=== PATIENT | male | born 1980 | race Caucasian/White ===

== ENCOUNTER 2019-02-11 17:33 | Emergency (ER) | payer MEDICAID ==
[~2019-02-11] VITALS: Ht 170.2 cm; Wt 65.0 kg
[2019-02-11] MEDS ORDERED: NALOXONE (0.4 MG/ML) INJ IV STA (17:40)
[2019-02-11] MEDS ORDERED: SOD CHLORIDE 0.9% 1,000 ML IV STA (17:40)
[2019-02-11 17:42] VITALS: Ht 170.2 cm; Wt 65.0 kg
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
[2019-02-11] MEDS ORDERED: FLUMAZENIL 0.5 MG INJ IV ONE ×2 (21:30→22:30)
[2019-02-11] MEDS ORDERED: GABA-528 PO (22:22)
[2019-02-11] MEDS ORDERED: IBUP-1982 PO (22:22)
[2019-02-11] MEDS ORDERED: BACL20TA PO (22:23)
[2019-02-11 23:40] VITALS: BP 118/72; PULSE 72; RESP 16
== END 2019-02-11 23:40 | disposition home or self-care (01) ==
LOC: E/R 17:33
DX: T42.4X1A Poisoning by benzodiazepines, accidental (unintentional), initial encounter (principal); R56.9 Unspecified convulsions
CPT/HCPCS: 36415; 70450; 71045; 80053; 80307; 85025; 93005; 96374; 96375; J2310; J7030; Z7502; Z7610

== ENCOUNTER 2019-03-21 21:30 | Emergency (ER) | payer SELFPAY ==
[~2019-03-21] VITALS: Wt 59.9 kg
[~2019-03-21 21:30] MED LIST: BACL20TA PO; GABA-528 PO; IBUP-1982 PO
[2019-03-21 21:44] VITALS: BP 120/74; PULSE 89; RESP 20
== END 2019-03-22 | disposition left against medical advice (07) ==
LOC: FTE 21:30
DX: Z53.21 Procedure and treatment not carried out due to patient leaving prior to being seen by health care provider (principal)

== ENCOUNTER 2019-05-01 00:57 | Inpatient (IN) | payer MEDICAID ==
[~2019-05-01] VITALS: Ht 175.3 cm; Wt 60.0 kg
[2019-05-01 01:03] VITALS: Ht 175.3 cm; Wt 60.0 kg
[2019-05-01] MEDS ORDERED: LORAZEPAM 2 MG INJ ONE (01:13)
[2019-05-01] MEDS ORDERED: HALOPERIDOL 5 MG INJ ONE (01:13)
[2019-05-01] MEDS ORDERED: DIPHENHYDRAMINE 50 MG INJ ONE (01:13)
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
[2019-05-01] MEDS ORDERED: HALOPERIDOL 5 MG INJ IM ONE ×3 (01:30→06:30)
[2019-05-01] MEDS ORDERED: DIPHENHYDRAMINE 50 MG INJ IM ONE ×2 (01:30→06:30)
[2019-05-01] MEDS ORDERED: LORAZEPAM 2 MG INJ IM ONE ×3 (01:30→06:30)
[2019-05-01] MEDS ORDERED: OLANZAPINE 10 MG VIAL IM ONE (03:30)
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
[2019-05-02] MEDS ORDERED: OLANZAPINE 5 MG TAB PO ONE (01:30)
[2019-05-02] MEDS ORDERED: SOD CHLORIDE 0.9% 1,000 ML IV STA (14:37)
[2019-05-02] MEDS ORDERED: ACETAMINOPHEN 325 MG TAB PO PRN ×2 (18:30)
[2019-05-02] MEDS ORDERED: HALOPERIDOL 5 MG INJ IM PRN (18:30)
[2019-05-02] MEDS ORDERED: DIPHENHYDRAMINE 50 MG INJ IM PRN (18:30)
[2019-05-02] MEDS ORDERED: MAGNESIUM HYDROXIDE 30ML CUP PO PRN (18:30)
[2019-05-02] MEDS ORDERED: LORAZEPAM 2 MG INJ IV PRN (18:30)
[2019-05-02] MEDS ORDERED: NACL 0.9% 3 ML SYG IV SCH (18:30)
[2019-05-02] MEDS ORDERED: ONDANSETRON 4 MG INJ IV PRN ×2 (18:30)
[2019-05-02] MEDS ORDERED: DOCUSATE SODIUM 100 MG CAP PO PRN (18:30)
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
[2019-05-02] MEDS: OLANZAPINE 5 MG TAB PO SCH (21:18)
[2019-05-02] MEDS: SOD CHLORIDE 0.9% 1,000 ML IV SCH (21:18)
[2019-05-02] MEDS: GABAPENTIN 400 MG CAP PO SCH (21:18)
[2019-05-02 23:30] VITALS: BP 133/80; PULSE 80; RESP 16
[2019-05-03] MEDS: SOD CHLORIDE 0.9% 1,000 ML IV SCH ×9 (00:18→22:28)
[2019-05-03 01:57] VITALS: BP 140/76; PULSE 85; RESP 16
[2019-05-03] MEDS: PANTOPRAZOLE (EC) 40 MG TAB PO SCH (05:07)
[2019-05-03 07:57] VITALS: BP 133/75; PULSE 77; RESP 18
[2019-05-03] MEDS: GABAPENTIN 400 MG CAP PO SCH ×2 (08:52→20:24)
[2019-05-03] MEDS: OLANZAPINE 5 MG TAB PO SCH ×2 (08:52→20:24)
[2019-05-03] MEDS: ENOXAPARIN 40 MG/0.4 ML SYG SC SCH (08:59)
--- NOTE | 2019-05-03 11:43 | PN ---
Date/Time of Note Date/Time of Note DATE: 05/03/19 TIME: 11:40 Assessment/Plan VTE Prophylaxis Risk score (from Ns)>0 risk: 1 SCD applied (from Nsg): Yes Pharmacological prophylaxis: LMWH Lines/Catheters IV Catheter Type (from Nrsg): Peripheral IV Urinary Cath still in place: No Assessment/Plan Assessment/Plan 1. Acute rhabdomyolysis- improving - will continue IVF. CK trending down - given patient is off restraints will help with resolution of rhabdo - UA noted. no renal injury appreciated - patient is currently calm and hopefully will remain off restraints since contributed to rhabdo 2. Acute psychosis- improved - due to substance abuse - Utox noted - patient only admits to Marijuana use - Tele [facility] consultation appreciated and will add Zyprexa and PRN medications for agitation. Recommended inpatient hold. SW consulted as well - Inhouse psych on board as well and appreciate consultation 3. h/o epilepsy with ENTRY MANAGER shunt - CT head noted with stable shunt - continue on Gabapentin BID - ativan PRN 4. Substance abuse - pt only admits to marijuana use - Utox results noted 5. Homelessness - patient states he lives with his mom at times - SW consultation appreciated 6. Disposition - Continue IVF and encourage PO hydration. If CK continues to trend down nicely, will be cleared medically for discharge Result Diagram: 05/03/19 0456 05/03/19 0456 Results 24hrs Laboratory Tests Test 05/02/19 13:14 05/02/19 15:35 05/03/19 04:56 White Blood Count 9.3 # 8.0 Red Blood Count 4.84 4.38 L Hemoglobin 14.8 13.1 L Hematocrit 44.5 40.9 L Mean Corpuscular Volume 91.9 93.4 Mean Corpuscular Hemoglobin 30.6 29.9 Mean Corpuscular Hemoglobin Concent 33.3 32.0 Red Cell Distribution Width 12.9 12.8 Platelet Count 392 351 Mean Platelet Volume 9.8 9.9 Immature Granulocytes % 0.600 H 0.600 H Neutrophils % 74.7 65.6 Lymphocytes % 16.4 24.1 Monocytes % 6.8 6.9 Eosinophils % 1.2 2.3 Basophils % 0.3 0.5 Nucleated Red Blood Cells % 0.0 0.0 Immature Granulocytes # 0.060 H 0.050 H Neutrophils # 6.9 5.3 Lymphocytes # 1.5 1.9 Monocytes # 0.6 0.6 Eosinophils # 0.1 0.2 Basophils # 0.0 0.0 Nucleated Red Blood Cells # 0.0 0.0 Sodium Level 142 140 Potassium Level 3.9 3.8 Chloride Level 104 107 Carbon Dioxide Level 30 29 Anion Gap 8 4 L Blood Urea Nitrogen 13 11 Creatinine 0.64 0.53 L Est Glomerular Filtrat Rate mL/min > 60 > 60 Glucose Level 120 95 Calcium Level 9.4 9.0 Creatine Kinase 1126 #H 1032 H 872 H Magnesium Level 2.0 Subjective 24 Hr Interval Summary Free Text/Dictation Patient is currently sleeping and no acute distress noted. Remains calm during the day. Exam/Review of Systems Exam Vitals Vital Signs Date Temp Pulse Resp B/P (MAP) Pulse Ox O2 O2 Flow FiO2 Time Delivery Rate 05/03/19 97.7 77 18 133/75 97 Room Air 07:57 (94) Intake and Output 05/02/19 05/02/19 05/03/19 1515:00 23:00 07:00 IntakeIntake Total 1375 ml BalanceBalance 1375 ml Exam General: Patient is resting. no acute distress Neck: Supple Chest: nontender Lungs: Clear bilaterally, nonlabored breathing, no wheezing or rhonchi appreciated Heart: Normal S1-S2, Regular rhythm and rate. No murmur, S3, or S4 Abdomen: Soft , nontender, nondistended , bowel sounds are present Extremities: Normal to inspection, no edema no cyanosis Skin: no rashes or lesions appreciated. Results Results 24hrs Laboratory Tests Test 05/02/19 13:14 05/02/19 15:35 05/03/19 04:56 White Blood Count 9.3 # 8.0 Red Blood Count 4.84 4.38 L Hemoglobin 14.8 13.1 L Hematocrit 44.5 40.9 L Mean Corpuscular Volume 91.9 93.4 Mean Corpuscular Hemoglobin 30.6 29.9 Mean Corpuscular Hemoglobin Concent 33.3 32.0 Red Cell Distribution Width 12.9 12.8 Platelet Count 392 351 Mean Platelet Volume 9.8 9.9 Immature Granulocytes % 0.600 H 0.600 H Neutrophils % 74.7 65.6 Lymphocytes % 16.4 24.1 Monocytes % 6.8 6.9 Eosinophils % 1.2 2.3 Basophils % 0.3 0.5 Nucleated Red Blood Cells % 0.0 0.0 Immature Granulocytes # 0.060 H 0.050 H Neutrophils # 6.9 5.3 Lymphocytes # 1.5 1.9 Monocytes # 0.6 0.6 Eosinophils # 0.1 0.2 Basophils # 0.0 0.0 Nucleated Red Blood Cells # 0.0 0.0 Sodium Level 142 140 Potassium Level 3.9 3.8 Chloride Level 104 107 Carbon Dioxide Level 30 29 Anion Gap 8 4 L Blood Urea Nitrogen 13 11 Creatinine 0.64 0.53 L Est Glomerular Filtrat Rate mL/min > 60 > 60 Glucose Level 120 95 Calcium Level 9.4 9.0 Creatine Kinase 1126 #H 1032 H 872 H Magnesium Level 2.0 Medications Medication Current Medications Sodium Chloride 1,000 ml @ 250 mls/hr Q4H IV Last administered on 05/03/19at 09:29; Admin Dose 250 MLS/HR; Start 05/02/19 at 18:22 IV Flush (NS 3 ml) 3 ml PER PROTOCOL IV ; Start 05/02/19 at 18:30 Ondansetron HCl (Zofran Inj) 4 mg Q6H PRN IV NAUSEA/VOMITING; Start 05/02/19 at 18:30 Acetaminophen (Tylenol Tab) 650 mg Q6H PRN PO .PAIN 1-3 OR TEMP; Start 05/02/19 at 18:30 Docusate Sodium (Colace) 100 mg Q12H PRN PO .CONSTIPATION; Start 05/02/19 at 18:30 Magnesium Hydroxide (Milk Of Mag) 30 ml DAILY PRN PO .CONSTIPATION; Start 05/02/19 at 18:30 Pantoprazole (Protonix Tab) 40 mg DAILY@06 PO Last administered on 05/03/19at 05:07; Admin Dose 40 MG; Start 05/03/19 at 06:00 Enoxaparin Sodium (Lovenox) 40 mg DAILY SC Last administered on 05/03/19at 08:59; Admin Dose 40 MG; Start 05/03/19 at 09:00 Olanzapine (Zyprexa) 5 mg BID PO Last administered on 05/03/19at 08:52; Admin Dose 5 MG; Start 05/02/19 at 21:00 Haloperidol (Haldol) 5 mg Q4H PRN IM agitation; Start 05/02/19 at 18:30 Diphenhydramine HCl (Benadryl) 50 mg Q4H PRN IM agitation; Start 05/02/19 at 18:30 Lorazepam (Ativan) 2 mg Q4H PRN IV agitation Last administered on 05/03/19at 08:59; Admin Dose 2 MG; Start 05/02/19 at 18:30 Gabapentin (Neurontin) 1,600 mg BID PO Last administered on 05/03/19at 08:52; Admin Dose 1,600 MG; Start 05/02/19 at 21:00 SHERIF SALEH MD May 03, 2019 11:43
--- NOTE | 2019-05-03 13:15 | CONS ---
Date/Time of Note Date/Time of Note DATE: 05/03/19 TIME: 13:11 Consult Date/Type/Reason Admit Date May 02, 2019 at 18:12 Type of Consult Psych Reason for Consult Patient is a 38-year-old male who is currently in the [facility] on a 5150 hold for danger to others. On a [id number] evaluation, patient goes off on tangents cannot carry on a coherent consult conversation. He is very paranoid and delusional accusing the one-to-one staff of setting him up, patient was also talking to the interviewer to look at the cameras and there was no camera in the room. He has poor impulse control poor coping skills very intrusive with poor boundaries. Patient is argumentative and unable to contract for safety he would benefit from inpatient hospitalization to reduce risk for self-harm or harm to other people. Objective Patient Appearance: Tense Voice Loudness: Mildly Soft/Quiet Mood and Affect Description: Hallucinating, Suspicious Mood or Affect: Hallucinating Speech Pattern: Garbled Thought Process: Tangential Hallucination Type: Auditory Delusion Description: Present Assessment/Plan Recommendations Continues with Zyprexa 5 mg twice a day, patient to remain on involuntary hold and possibly transfer to inpatient psych BETH PYLE NP May 03, 2019 13:15
[2019-05-03 14:00] VITALS: BP 122/79; PULSE 103; RESP 18
[2019-05-03] MEDS ORDERED: OLAN5TAB5 PO (14:58)
--- NOTE | 2019-05-03 15:03 | PDOCDIS ---
Discharge Instructions DIAGNOSIS Discharge Diagnosis 1. Acute rhabdomyolysis- improving 2. Acute psychosis- improved 3. h/o epilepsy with SURVEYOR shunt- stable 4. Substance abuse 5. Homelessness CONDITION [id number] Patient Condition: [id number] Stable HOME CARE INSTRUCTIONS: [id number] Diet Instructions: [id number] Regular ACTIVITY: [id number] Activity Restrictions: [id number] No Restrictions FOLLOW UP/APPOINTMENTS Follow-up Plan 1. Continue all medications per treating physicians recommendations 2. Keep well hydrated SHERIF SALEH MD May 03, 2019 15:03
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
[2019-05-03 20:03] VITALS: BP 116/80; PULSE 94; RESP 18
[2019-05-04 01:54] VITALS: BP 133/88; PULSE 84; RESP 18
[2019-05-04] MEDS: SOD CHLORIDE 0.9% 1,000 ML IV SCH ×4 (02:37→16:49)
[2019-05-04] MEDS: PANTOPRAZOLE (EC) 40 MG TAB PO SCH (06:36)
[2019-05-04 08:55] VITALS: BP 126/86; PULSE 82; RESP 18
[2019-05-04] MEDS: OLANZAPINE 5 MG TAB PO SCH ×2 (09:37→20:54)
[2019-05-04] MEDS: GABAPENTIN 400 MG CAP PO SCH ×2 (09:38→20:54)
[2019-05-04] MEDS: ENOXAPARIN 40 MG/0.4 ML SYG SC SCH (09:40)
--- NOTE | 2019-05-04 12:40 | PN ---
Date/Time of Note Date/Time of Note DATE: 05/04/19 TIME: 12:36 Assessment/Plan VTE Prophylaxis Risk score (from Nsg)>0 risk: 1 SCD applied (from Nsg): Yes Pharmacological prophylaxis: LMWH Lines/Catheters IV Catheter Type (from Nrsg): Peripheral IV Urinary Cath still in place: No Assessment/Plan Hospital Course Patient was admitted for treatment of acute rhabdomyolysis and started on IVF with improvement in CK levels. Patient remained calm and did not require any fu rther restraints. He denies any complaints of muscle cramping and renal function remained stable. He was evaluated by inpatient psych who arranged for continued treatment in inpatient psych facility. Patient was medically cleared for discharge and was discharged to inpatient psych in stable condition. Assessment/Plan 1. Acute rhabdomyolysis- improving - CK continues to trend down nicely and will d/c IVF. Encouraged PO hydration - UA noted. no renal injury appreciated 2. Acute psychosis- resolved - patient remains calm - due to substance abuse, Utox noted - patient only admits to Marijuana use - Tele [facility] consultation appreciated. Started on Zyprexa and PRN medications for agitation. Recommended inpatient hold. SW consulted as well - Inhouse psych on board as well and appreciate consultation. Will plan for transfer to [facility] but no bed availability at this time 3. h/o epilepsy with RAINBOW TROUT FARM MANAGER shunt - CT head noted with stable shunt - continue on Gabapentin BID - ativan PRN 4. Substance abuse - pt only admits to marijuana use - Utox results noted 5. Homelessness - patient states he lives with his mom at times - SW consultation appreciated 6. Disposition - Medically stable for transfer to inpatient psych. Pending bed availability Result Diagram: 05/03/19 0456 05/03/19 0456 Results 24hrs Laboratory Tests Test 05/03/19 14:53 05/04/19 05:19 Creatine Kinase 746 H 511 H Subjective 24 Hr Interval Summary Free Text/Dictation Patient denies any acute issues and understands he is on a hold due to his behavior. Also voiced that after his 72 hours hold, he will go home with his mother. Per nursing, no beds at this time at [facility]. Exam/Review of Systems Exam Vitals Vital Signs Date Temp Pulse Resp B/P (MAP) Pulse Ox O2 O2 Flow FiO2 Time Delivery Rate 05/04/19 98.7 82 18 126/86 100 08:55 (99) 05/04/19 Room Air 01:54 Intake and Output 05/03/19 05/03/19 05/04/19 1515:00 23:00 07:00 IntakeIntake Total 2880 ml 2200 ml 2050 ml BalanceBalance 2880 ml 2200 ml 2050 ml Exam General: Patient is resting. no acute distress Neck: Supple Chest: nontender Lungs: Clear bilaterally, nonlabored breathing, no wheezing or rhonchi appreciated Heart: Normal S1-S2, Regular rhythm and rate. No murmur, S3, or S4 Abdomen: Soft , nontender, nondistended , bowel sounds are present Extremities: Normal to inspection, no edema no cyanosis Skin: no rashes or lesions appreciated. Results Results 24hrs Laboratory Tests Test 05/03/19 14:53 05/04/19 05:19 Creatine Kinase 746 H 511 H Medications Medication Current Medications Sodium Chloride 1,000 ml @ 250 mls/hr Q4H IV Last administered on 05/04/19at 09:38; Admin Dose 250 MLS/HR; Start 05/02/19 at 18:22 IV Flush (NS 3 ml) 3 ml PER PROTOCOL IV ; Start 05/02/19 at 18:30 Ondansetron HCl (Zofran Inj) 4 mg Q6H PRN IV NAUSEA/VOMITING; Start 05/02/19 at 18:30 Acetaminophen (Tylenol Tab) 650 mg Q6H PRN PO .PAIN 1-3 OR TEMP; Start 05/02/19 at 18:30 Docusate Sodium (Colace) 100 mg Q12H PRN PO .CONSTIPATION; Start 05/02/19 at 18:30 Magnesium Hydroxide (Milk Of Mag) 30 ml DAILY PRN PO .CONSTIPATION; Start 05/02/19 at 18:30 Pantoprazole (Protonix Tab) 40 mg DAILY@06 PO Last administered on 05/04/19at 06:36; Admin Dose 40 MG; Start 05/03/19 at 06:00 Enoxaparin Sodium (Lovenox) 40 mg DAILY SC Last administered on 05/04/19at 09:40; Admin Dose 40 MG; Start 05/03/19 at 09:00 Olanzapine (Zyprexa) 5 mg BID PO Last administered on 05/04/19at 09:37; Admin Dose 5 MG; Start 05/02/19 at 21:00 Haloperidol (Haldol) 5 mg Q4H PRN IM agitation; Start 05/02/19 at 18:30 Diphenhydramine HCl (Benadryl) 50 mg Q4H PRN IM agitation; Start 05/02/19 at 18:30 Lorazepam (Ativan) 2 mg Q4H PRN IV agitation Last administered on 05/03/19at 08:59; Admin Dose 2 MG; Start 05/02/19 at 18:30 Gabapentin (Neurontin) 1,600 mg BID PO Last administered on 05/04/19at 09:38; Admin Dose 1,600 MG; Start 05/02/19 at 21:00 SHERIF SALEH MD May 04, 2019 12:40
[2019-05-04 15:28] VITALS: BP 134/85; PULSE 98; RESP 18
[2019-05-04 20:01] VITALS: BP 127/84; PULSE 60; RESP 18
[2019-05-05 02:06] VITALS: BP 117/76; PULSE 71; RESP 18
[2019-05-05] MEDS: SOD CHLORIDE 0.9% 1,000 ML IV SCH (02:57)
[2019-05-05] MEDS: PANTOPRAZOLE (EC) 40 MG TAB PO SCH (05:17)
[2019-05-05 08:08] VITALS: BP 127/79; PULSE 71; RESP 17
[2019-05-05] MEDS: OLANZAPINE 5 MG TAB PO SCH ×2 (08:21→21:26)
[2019-05-05] MEDS: GABAPENTIN 400 MG CAP PO SCH ×2 (08:21→21:26)
[2019-05-05] MEDS: ENOXAPARIN 40 MG/0.4 ML SYG SC SCH (08:24)
[2019-05-05] MEDS ORDERED: GABA-528 PO (09:33)
--- NOTE | 2019-05-05 09:37 | PN ---
Date/Time of Note Date/Time of Note DATE: 05/05/19 TIME: 09:32 Assessment/Plan VTE Prophylaxis Risk score (from Nsg)>0 risk: 1 SCD applied (from Nsg): Yes Pharmacological prophylaxis: NA/contraindicated Pharm contraindication: low risk/ambulating Lines/Catheters IV Catheter Type (from Nrsg): Peripheral IV Urinary Cath still in place: No Assessment/Plan Assessment/Plan 1. Acute rhabdomyolysis- resolved - CK normalized. will d/c IVF 2. Acute psychosis- resolved - discussed being on a 5150 hold and plans for transfer to psych facility. Patient knows his hold is up today but encouraged to go to outside hospital once bed available - due to substance abuse, Utox noted - patient only admits to Marijuana use - Tele [facility] consultation appreciated. Started on Zyprexa and PRN medications for agitation. Recommended inpatient hold. SW consulted as well - Inhouse psych on board as well and appreciate consultation. Will plan for transfer to [facility] but no bed availability at this time 3. h/o epilepsy with STEWARD/STEWARDESS NIGHT shunt - CT head noted with stable shunt - continue on Gabapentin BID - ativan PRN 4. Substance abuse - pt only admits to marijuana use - Utox results noted 5. Homelessness - patient states he lives with his mom at times - SW consultation appreciated 6. Disposition - Medically stable for transfer to inpatient psych. Pending bed availability Result Diagram: 05/03/19 0456 05/03/19 0456 Results 24hrs Laboratory Tests Test 05/05/19 04:45 Creatine Kinase 195 # Subjective 24 Hr Interval Summary Free Text/Dictation Patient denies any acute issues. He is requesting to go home after his hold is up. Discussed need for transfer to inpatient psych for further evaluation and highly encouraged patient not leave AMA prior to transfer. He states hes willing to see psych but wants to go spend time with his mother first. Exam/Review of Systems Exam Vitals Vital Signs Date Temp Pulse Resp B/P (MAP) Pulse Ox O2 O2 Flow FiO2 Time Delivery Rate 05/05/19 98.4 71 17 127/79 99 08:08 (95) 05/04/19 Room Air 01:54 Intake and Output 05/04/19 05/04/19 05/05/19 1515:00 23:00 07:00 IntakeIntake Total 1000 ml 680 ml BalanceBalance 1000 ml 680 ml Exam General: Patient is resting. no acute distress Neck: Supple Lungs: Clear bilaterally, nonlabored breathing, no wheezing or rhonchi appreciated Heart: Normal S1-S2, Regular rhythm and rate. No murmur, S3, or S4 Abdomen: Soft , nontender, nondistended , bowel sounds are present Extremities: Normal to inspection, no edema no cyanosis Skin: no rashes or lesions appreciated. Results Results 24hrs Laboratory Tests Test 05/05/19 04:45 Creatine Kinase 195 # Medications Medication Current Medications Sodium Chloride 1,000 ml @ 100 mls/hr Q10H IV Last administered on 05/05/19at 02:57; Admin Dose 100 MLS/HR; Start 05/02/19 at 18:22 IV Flush (NS 3 ml) 3 ml PER PROTOCOL IV ; Start 05/02/19 at 18:30 Ondansetron HCl (Zofran Inj) 4 mg Q6H PRN IV NAUSEA/VOMITING; Start 05/02/19 at 18:30 Acetaminophen (Tylenol Tab) 650 mg Q6H PRN PO .PAIN 1-3 OR TEMP; Start 05/02/19 at 18:30 Docusate Sodium (Colace) 100 mg Q12H PRN PO .CONSTIPATION; Start 05/02/19 at 18:30 Magnesium Hydroxide (Milk Of Mag) 30 ml DAILY PRN PO .CONSTIPATION; Start 05/02/19 at 18:30 Pantoprazole (Protonix Tab) 40 mg DAILY@06 PO Last administered on 05/05/19at 05:17; Admin Dose 40 MG; Start 05/03/19 at 06:00 Enoxaparin Sodium (Lovenox) 40 mg DAILY SC Last administered on 05/05/19at 08:24; Admin Dose 40 MG; Start 05/03/19 at 09:00 Olanzapine (Zyprexa) 5 mg BID PO Last administered on 05/05/19at 08:21; Admin Dose 5 MG; Start 05/02/19 at 21:00 Haloperidol (Haldol) 5 mg Q4H PRN IM agitation; Start 05/02/19 at 18:30 Diphenhydramine HCl (Benadryl) 50 mg Q4H PRN IM agitation; Start 05/02/19 at 18:30 Lorazepam (Ativan) 2 mg Q4H PRN IV agitation Last administered on 05/03/19at 08:59; Admin Dose 2 MG; Start 05/02/19 at 18:30 Gabapentin (Neurontin) 1,600 mg BID PO Last administered on 05/05/19 08:21; Admin Dose 1,600 MG; Start 05/02/19 at 21:00 SHERIF SALEH MD May 05, 2019 09:37
[2019-05-05 13:48] VITALS: BP 121/67; PULSE 99; RESP 17
[2019-05-05 20:00] VITALS: BP 119/74; PULSE 77; RESP 18
[2019-05-06 02:00] VITALS: BP 112/68; PULSE 70; RESP 17
[2019-05-06] MEDS: PANTOPRAZOLE (EC) 40 MG TAB PO SCH ×2 (06:00→06:11)
[2019-05-06 08:19] VITALS: BP 112/62; PULSE 85; RESP 18
[2019-05-06] MEDS: GABAPENTIN 400 MG CAP PO SCH (09:01)
[2019-05-06] MEDS: OLANZAPINE 5 MG TAB PO SCH (09:02)
[2019-05-06] MEDS: ENOXAPARIN 40 MG/0.4 ML SYG SC SCH (09:03)
--- NOTE | 2019-05-06 14:01 | DS ---
Date/Time of Note Date/Time of Note DATE: 05/06/19 TIME: 14:01 Discharge Summary Admission/Discharge Info Admit Date/Time May 02, 2019 at 18:12 Discharge Date/Time Discharge Diagnosis 1. Acute rhabdomyolysis- improving 2. Acute psychosis- improved 3. h/o epilepsy with TECHNICAL DELIVERY MANAGER shunt- stable 4. Substance abuse 5. Homelessness Patient Condition: Stable Hospital Course Patient is a male with a past medical history of epilepsy with TECHNICAL DELIVERY MANAGER shunt who presents to [facility] for psychotic behavior and rhabdomyolysis. Patient's rhabdomyolysis has resolved and patient was spending extra time in the hospital after exhibiting psychotic behavior and being recommended for 5150 hold and transfer to psych facility. After speaking with patient and patient's mother, they stated that they would like to see psychiatry more time to determine if patient actually needs inpatient psychiatric. Tele- psych saw patient again today and determined that the patient still had unspecified psychosis and recommended continued involuntary hold and transferred to inpatient psychiatric facility. Patient is cleared from a medical perspective to be discharged to psychiatric facility when bed is available. On initial psychiatry evaluation, patient was found to go off on tangents and unable to continue with coherent conversation, however this did improve over the course of the admission however on the last evaluation by tele-psych patient was still determined to have unspecified psychosis and inpatient psychiatric care was recommended. Patient continued to exhibit bizarre behavior and thought content did exhibit hallucinations per tele-psych. Patient is not suicidal or homicidal at this time Discharge diagnosis Acute rhabdomyolysis, resolved Acute psychosis, resolving History of epilepsy with TECHNICAL DELIVERY MANAGER shunt Substance abuse, patient only admits to marijuana use Homelessness Home Meds Active Scripts Gabapentin* (Gabapentin*) 800 Mg Tablet, 1600 MG PO BID for 30 Days, #120 TAB 1 Refill Prov:SHERIF SALEH MD 05/05/19 Olanzapine* (Zyprexa*) 5 Mg Tablet, 5 MG PO BID for 30 Days, #60 TAB Prov:SHERIF SALEH MD 05/03/19 Discontinued Reported Medications Baclofen* (Baclofen*) 20 Mg Tablet, 40 MG PO BID, TAB 02/11/19 Ibuprofen* (Ibuprofen*) 200 Mg Capsule, 200 MG PO QID PRN for PAIN, CAP 02/11/19 Follow-up Plan 1. Continue all medications per treating physicians recommendations 2. Keep well hydrated Primary Care Provider Care Physician No Primary Time spent on discharge: > 30 minutes Pending Labs Laboratory Tests Test 05/06/19 04:49 Creatine Kinase 89 IU/L (23-200) REECE TOBIAS May 06, 2019 14:01
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
[2019-05-06 15:42] VITALS: BP 123/78; PULSE 110; RESP 18
== END 2019-05-06 16:30 | DRG 558 ==
LOC: E/R 00:57 → 5EC 05-02 18:12
PROVIDERS: ADMIT Internal Medicine; ATTEND Internal Medicine
DX: M62.82 Rhabdomyolysis (principal); F23 Brief psychotic disorder; F13.10 Sedative, hypnotic or anxiolytic abuse, uncomplicated; Z59.0 Homelessness; G40.909 Epilepsy, unspecified, not intractable, without status epilepticus; Z98.2 Presence of cerebrospinal fluid drainage device; F19.10 Other psychoactive substance abuse, uncomplicated; F17.200 Nicotine dependence, unspecified, uncomplicated; F14.90 Cocaine use, unspecified, uncomplicated
CPT/HCPCS: 70450; 71045; 80048; 80053; 80307; 81001; 81003; 82550; 82962; 83735; 85025; 96372; J1200; J1630; J1650; J2060; J7030; P9612

== ENCOUNTER 2019-05-31 17:10 | Inpatient (IN) | payer MEDICAID ==
[~2019-05-31] VITALS: Ht 170.2 cm; Wt 54.6 kg
[~2019-05-31 17:10] MED LIST changes: -BACL20TA PO; -IBUP-1982 PO; +OLAN5TAB5 PO
[2019-05-31] MEDS ORDERED: LORAZEPAM 2 MG INJ IV STA (17:13)
[2019-05-31] MEDS ORDERED: SOD CHLORIDE 0.9% 1,000 ML IV STA (17:13)
[2019-05-31] MEDS ORDERED: ACETAMINOPHEN 325 MG TAB PO STA (17:38)
[2019-05-31] MEDS ORDERED: CEFTRIAXONE 1 GM/50 ML (PMX) 50 ML IVPB STA (17:38)
[2019-05-31] MEDS ORDERED: SODIUM CHLORIDE 0.9% 1L BAG IV* STA (17:51)
[2019-05-31] MEDS ORDERED: SOD CHLORIDE 0.9% 1,000 ML IV SCH (19:06)
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
[2019-05-31] MEDS ORDERED: ACETAMINOPHEN 650 MG SUPP PR PRN (19:30)
[2019-05-31] MEDS ORDERED: HYDROCODONE/APAP (5/325) TAB PO PRN (19:30)
[2019-05-31] MEDS ORDERED: SODIUM CHLORIDE 0.9% 1L BAG IV SCH (19:30)
[2019-05-31] MEDS ORDERED: BISACODYL 10 MG SUPP PR PRN (19:30)
[2019-05-31] MEDS ORDERED: ACETAMINOPHEN 325 MG TAB PO PRN (19:30)
[2019-05-31] MEDS ORDERED: morphine 2 MG INJ IV PRN (19:30)
[2019-05-31] MEDS ORDERED: ONDANSETRON 4 MG INJ IV PRN (19:30)
[2019-05-31] MEDS ORDERED: NACL 0.9% 3 ML SYG IV SCH (19:30)
[2019-05-31] MEDS ORDERED: DOCUSATE SODIUM 100 MG CAP PO PRN (19:30)
[2019-05-31] MEDS: DEXTROSE 5% 1,000 ML IV SCH (19:54)
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
[2019-05-31] MEDS ORDERED: LORAZEPAM 2 MG INJ IV ONE (20:00)
[2019-05-31] MEDS ORDERED: HALOPERIDOL 5 MG INJ IM ONE (20:00)
[2019-05-31] MEDS ORDERED: LORAZEPAM 2 MG INJ IV PRN (20:00)
[2019-05-31] MEDS ORDERED: DIAZEPAM 5 MG/ML SYG IV ONE (20:30)
[2019-05-31] MEDS: FAMOTIDINE 20 MG INJ IV SCH (21:28)
[2019-06-01] VITALS (11 sets, daily range): BP systolic 96–142; BP diastolic 59–76; PULSE 75–100; RESP 16–20; Ht 170.2 cm; Wt 54.6 kg
[2019-06-01] MEDS: GABAPENTIN 400 MG CAP PO SCH ×3 (01:54→20:40)
[2019-06-01] MEDS: OLANZAPINE 5 MG TAB PO SCH ×3 (01:55→20:40)
[2019-06-01] MEDS: DEXTROSE 5% 1,000 ML IV SCH ×3 (04:07→20:40)
[2019-06-01] MEDS ORDERED: ENOXAPARIN 30 MG/0.3 ML SYG SC SCH (09:00)
--- NOTE | 2019-06-01 16:23 | PN ---
Date/Time of Note Date/Time of Note DATE: 06/01/19 TIME: 16:19 Assessment/Plan VTE Prophylaxis Risk score (from Ns)>0 risk: 4 SCD applied (from Ns): Yes SCD contraindicated: low risk/ambulating Pharmacological prophylaxis: LMWH Lines/Catheters IV [facility] Type (from [facility]): Peripheral IV Urinary Cath still in place: Yes Reason Cath still needed: urinary retention Assessment/Plan Hospital Course A/P 1. Hyperthermia, suspected heat exposure. Reviewed behavioral Health Meds. Stable, hydrate cont supportive care 2. Chronic seizure disorder, restart neurontin 3. Ho traumatic brain injury/concussion? 4. 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 Ac Renal Failure/ ATN stable improved 7. Hypernatremia/ hypovolemia 8. Chr psychosis? Doubt malignant hyperthermia snd [prn bromocriptine dantrolene]. but will hold Zyprexa. Will use benzos. 9. History of substance abuse: Meth, marijuana 10. Possible history of recent rhabdomyolysis 7. Subclinical hyperthyroidism Subjective: No seizures. No fever dyspnea. Resting much improved. Objective: Vital signs stable PE No pallor droop. poor oral hygiene Regular no mrg Clear Benign No edema. No muscle rigidity Result Diagram: 06/01/19 0532 06/01/19 0532 Results 24hrs Laboratory Tests Test 05/31/19 17:28 05/31/19 17:29 05/31/19 17:50 05/31/19 17:53 Osmolality 335 H White Blood Count 29.5 H Red Blood Count 5.83 Hemoglobin 17.3 Hematocrit 52.7 H Mean Corpuscular Volume 90.4 Mean Corpuscular 29.7 Hemoglobin Mean Corpuscular 32.8 Hemoglobin Concent Red Cell Distribution 12.7 Width Platelet Count 481 H Mean Platelet Volume 10.4 Immature Granulocytes % 0.900 H Neutrophils % 92.9 H Lymphocytes % 1.9 L Monocytes % 4.1 Eosinophils % 0.0 Basophils % 0.2 Nucleated Red Blood 0.0 Cells % Immature Granulocytes # 0.260 H Neutrophils # 27.4 H Lymphocytes # 0.6 L Monocytes # 1.2 H Eosinophils # 0.0 Basophils # 0.1 Nucleated Red Blood 0.0 Cells # Pathologist YES Review (Hematology) Sodium Level 158 H Potassium Level 3.6 Chloride Level 116 H Carbon Dioxide Level 25 Anion Gap 17 H Blood Urea Nitrogen 34 H Creatinine 2.39 H Est Glomerular Filtrat 30 L Rate mL/min Glucose Level 111 Calcium Level 11.9 H Total Bilirubin 0.9 Direct Bilirubin 0.00 Indirect Bilirubin 0.9 Aspartate Amino 65 H Transf (AST/SGOT) Alanine 35 Aminotransferase (ALT/S GPT) Alkaline Phosphatase 131 H Total Protein 10.7 H Albumin 5.7 H Globulin 5.00 H Albumin/Globulin Ratio 1.14 Salicylates Level < 1.0 L Acetaminophen Level < 10.0 L Ethyl Alcohol Level < 10.0 H POC Venous Lactate 1.6 Creatine Kinase 490 H Test 05/31/19 19:23 05/31/19 20:21 05/31/19 22:36 06/01/19 05:32 Lactic Acid Level 1.4 Urine Color ARNAV Urine Clarity CLOUDY A Urine pH 5.0 Urine Specific [place] 1.028 Urine Ketones TRACE A Urine Nitrite NEGATIVE Urine Bilirubin NEGATIVE Urine Urobilinogen NEGATIVE Urine Leukocyte NEGATIVE Esterase Urine Microscopic RBC 20 H Urine Microscopic WBC 13 H Urine Hyaline Casts MODERATE Urine Mucus MANY A Urine Hemoglobin NEGATIVE Urine Osmolality 624 Urine Random Creatinine 336.94 Urine Random Sodium Urine Glucose NEGATIVE Urine Total Protein 2+ H Sodium Level 148 H 149 H Potassium Level 4.1 4.4 Chloride Level 118 H 114 H Carbon Dioxide Level 20 L 28 Anion Gap 10 # 7 Blood Urea Nitrogen 34 H 34 H Creatinine 1.21 # 0.90 Est Glomerular Filtrat > 60 > 60 Rate mL/min Glucose Level 218 # 108 # Calcium Level 8.9 9.5 White Blood Count 13.8 #H Red Blood Count 4.68 L Hemoglobin 13.9 L Hematocrit 44.0 Mean Corpuscular Volume 94.0 Mean Corpuscular 29.7 Hemoglobin Mean Corpuscular 31.6 L Hemoglobin Concent Red Cell Distribution 13.0 Width Platelet Count 294 # Mean Platelet Volume 10.6 H Immature Granulocytes % 0.700 H Neutrophils % 75.5 Lymphocytes % 11.2 L Monocytes % 12.5 H Eosinophils % 0.0 Basophils % 0.1 Nucleated Red Blood 0.0 Cells % Immature Granulocytes # 0.090 H Neutrophils # 10.4 H Lymphocytes # 1.6 Monocytes # 1.7 H Eosinophils # 0.0 Basophils # 0.0 Nucleated Red Blood 0.0 Cells # Prothrombin Time 13.2 Prothrombin Time Ratio 1.0 INR International 0.99 Normalized Ratio Hemoglobin A1c 5.6 Phosphorus Level 4.2 Magnesium Level 2.7 H Total Bilirubin 0.8 Direct Bilirubin 0.00 Indirect Bilirubin 0.8 Aspartate Amino 52 H Transf (AST/SGOT) Alanine 30 Aminotransferase (ALT/S GPT) Alkaline Phosphatase 79 Creatine Kinase 936 #H Total Protein 7.0 # Albumin 4.2 # Globulin 2.80 Albumin/Globulin Ratio 1.50 Thyroid Stimulating 0.370 L Hormone (TSH) Exam/Review of Systems Exam Vitals Vital Signs Date Temp Pulse Resp B/P (MAP) Pulse Ox O2 O2 Flow FiO2 Time Delivery Rate 06/01/19 98 2.0 27 15:51 06/01/19 98.2 79 16 106/67 Nasal 15:00 (80) Cannula Intake and Output 05/31/19 05/31/19 06/01/19 1515:00 23:00 07:00 IntakeIntake Total 1100 ml OutputOutput Total 400 ml BalanceBalance 700 ml Results Results 24hrs Laboratory Tests Test 05/31/19 17:28 05/31/19 17:29 05/31/19 17:50 05/31/19 17:53 Osmolality 335 H White Blood Count 29.5 H Red Blood Count 5.83 Hemoglobin 17.3 Hematocrit 52.7 H Mean Corpuscular Volume 90.4 Mean Corpuscular 29.7 Hemoglobin Mean Corpuscular 32.8 Hemoglobin Concent Red Cell Distribution 12.7 Width Platelet Count 481 H Mean Platelet Volume 10.4 Immature Granulocytes % 0.900 H Neutrophils % 92.9 H Lymphocytes % 1.9 L Monocytes % 4.1 Eosinophils % 0.0 Basophils % 0.2 Nucleated Red Blood 0.0 Cells % Immature Granulocytes # 0.260 H Neutrophils # 27.4 H Lymphocytes # 0.6 L Monocytes # 1.2 H Eosinophils # 0.0 Basophils # 0.1 Nucleated Red Blood 0.0 Cells # Pathologist YES Review (Hematology) Sodium Level 158 H Potassium Level 3.6 Chloride Level 116 H Carbon Dioxide Level 25 Anion Gap 17 H Blood Urea Nitrogen 34 H Creatinine 2.39 H Est Glomerular Filtrat 30 L Rate mL/min Glucose Level 111 Calcium Level 11.9 H Total Bilirubin 0.9 Direct Bilirubin 0.00 Indirect Bilirubin 0.9 Aspartate Amino 65 H Transf (AST/SGOT) Alanine 35 Aminotransferase (ALT/S GPT) Alkaline Phosphatase 131 H Total Protein 10.7 H Albumin 5.7 H Globulin 5.00 H Albumin/Globulin Ratio 1.14 Salicylates Level < 1.0 L Acetaminophen Level < 10.0 L Ethyl Alcohol Level < 10.0 H POC Venous Lactate 1.6 Creatine Kinase 490 H Test 05/31/19 19:23 05/31/19 20:21 05/31/19 22:36 06/01/19 05:32 Lactic Acid Level 1.4 Urine Color ARNAV Urine Clarity CLOUDY A Urine pH 5.0 Urine Specific [place] 1.028 Urine Ketones TRACE A Urine Nitrite NEGATIVE Urine Bilirubin NEGATIVE Urine Urobilinogen NEGATIVE Urine Leukocyte NEGATIVE Esterase Urine Microscopic RBC 20 H Urine Microscopic WBC 13 H Urine Hyaline Casts MODERATE Urine Mucus MANY A Urine Hemoglobin NEGATIVE Urine Osmolality 624 Urine Random Creatinine 336.94 Urine Random Sodium Urine Glucose NEGATIVE Urine Total Protein 2+ H Sodium Level 148 H 149 H Potassium Level 4.1 4.4 Chloride Level 118 H 114 H Carbon Dioxide Level 20 L 28 Anion Gap 10 # 7 Blood Urea Nitrogen 34 H 34 H Creatinine 1.21 # 0.90 Est Glomerular Filtrat > 60 > 60 Rate mL/min Glucose Level 218 # 108 # Calcium Level 8.9 9.5 White Blood Count 13.8 #H Red Blood Count 4.68 L Hemoglobin 13.9 L Hematocrit 44.0 Mean Corpuscular Volume 94.0 Mean Corpuscular 29.7 Hemoglobin Mean Corpuscular 31.6 L Hemoglobin Concent Red Cell Distribution 13.0 Width Platelet Count 294 # Mean Platelet Volume 10.6 H Immature Granulocytes % 0.700 H Neutrophils % 75.5 Lymphocytes % 11.2 L Monocytes % 12.5 H Eosinophils % 0.0 Basophils % 0.1 Nucleated Red Blood 0.0 Cells % Immature Granulocytes # 0.090 H Neutrophils # 10.4 H Lymphocytes # 1.6 Monocytes # 1.7 H Eosinophils # 0.0 Basophils # 0.0 Nucleated Red Blood 0.0 Cells # Prothrombin Time 13.2 Prothrombin Time Ratio 1.0 INR International 0.99 Normalized Ratio Hemoglobin A1c 5.6 Phosphorus Level 4.2 Magnesium Level 2.7 H Total Bilirubin 0.8 Direct Bilirubin 0.00 Indirect Bilirubin 0.8 Aspartate Amino 52 H Transf (AST/SGOT) Alanine 30 Aminotransferase (ALT/S GPT) Alkaline Phosphatase 79 Creatine Kinase 936 #H Total Protein 7.0 # Albumin 4.2 # Globulin 2.80 Albumin/Globulin Ratio 1.50 Thyroid Stimulating 0.370 L Hormone (TSH) Medications Medication Current Medications IV Flush (NS 3 ml) 3 ml PER PROTOCOL IV ; Start 05/31/19 at 19:30 Ondansetron HCl (Zofran Inj) 4 mg Q6H PRN IV NAUSEA/VOMITING; Start 05/31/19 at 19:30 Acetaminophen (Tylenol Tab) 650 mg Q6H PRN PO .PAIN 1-3 OR TEMP; Start 05/31/19 at 19:30 Acetaminophen (Tylenol Supp) 650 mg Q6H PRN [place] .PAIN 1-3 OR TEMP; Start 05/31/19 at 19:30 Acetaminophen/ Hydrocodone Bitart ([place] (5/325)) 1 tab Q6H PRN PO .MOD PAIN 4- 6; Start 05/31/19 at 19:30 Morphine Sulfate (morphine) 2 mg Q4H PRN IV .SEVERE PAIN 7-10; Start 05/31/19 at 19:30 Docusate Sodium (Colace) 100 mg Q12H PRN PO .CONSTIPATION; Start 05/31/19 at 19:30 Bisacodyl (Dulcolax Supp) 10 mg DAILY PRN [place] .CONSTIPATION; Start 05/31/19 at 19:30 Famotidine (Pepcid Iv) 20 mg Q24H IV Last administered on 05/31/19at 21:28; Admin Dose 20 MG; Start 05/31/19 at 21:00 Enoxaparin Sodium (Lovenox) 30 mg DAILY SC Last administered on 06/01/19at 08:43; Admin Dose 30 MG; Start 06/01/19 at 09:00 Dextrose 1,000 ml @ 125 mls/hr Q8H IV Last administered on 06/01/19at 11:44; Admin Dose 125 MLS/HR; Start 05/31/19 at 19:30 Gabapentin (Neurontin) 1,600 mg BID PO Last administered on 06/01/19at 08:37; Admin Dose 1,600 MG; Start 05/31/19 at 21:00 Olanzapine (Zyprexa) 5 mg BID PO Last administered on 06/01/19at 08:37; Admin Dose 5 MG; Start 05/31/19 at 21:00 Lorazepam (Ativan) 2 mg Q6H PRN IV AGITATION/ANXIETY; Start 05/31/19 at 20:00 JOSE PRO MD Jun 01, 2019 16:23
[2019-06-01] MEDS: FAMOTIDINE 20 MG INJ IV SCH (20:40)
[2019-06-02] VITALS: BP 117/65; PULSE 78; RESP 18
[2019-06-02 01:51] VITALS: BP 114/64; PULSE 80; RESP 18
[2019-06-02] MEDS: DEXTROSE 5% 1,000 ML IV SCH ×2 (06:15→06:40)
[2019-06-02 08:32] VITALS: BP 101/66; PULSE 76; RESP 18
[2019-06-02] MEDS: GABAPENTIN 400 MG CAP PO SCH (08:51)
[2019-06-02] MEDS: OLANZAPINE 5 MG TAB PO SCH (08:53)
[2019-06-02] MEDS ORDERED: THIAMINE 100 MG TAB PO SCH (09:00)
[2019-06-02] MEDS ORDERED: ENOXAPARIN 40 MG/0.4 ML SYG SC SCH (09:00)
--- NOTE | 2019-06-02 11:39 | PN ---
Date/Time of Note Date/Time of Note DATE: 06/02/19 TIME: 11:37 Assessment/Plan VTE Prophylaxis Risk score (from Ns)>0 risk: 3 SCD applied (from Ns): Yes SCD contraindicated: low risk/ambulating Pharmacological prophylaxis: LMWH Lines/Catheters IV [facility] (from [facility]): Peripheral IV Urinary Cath still in place: No Assessment/Plan Hospital Course A/P 1. Hyperthermia, suspected heat exposure. Reviewed behavioral Health Meds. Stable, hydrate. Discharge soon if okay with social service 2. Chronic seizure disorder, restarted Neurontin 3. Ho traumatic brain injury/concussion? 4. 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 Ac Renal Failure/ ATN stable improved 7. Hypernatremia/ hypovolemia 8. Chr psychosis? Doubt malignant hyperthermia [prn bromocriptine dantrolene]. Tolerating Zyprexa. benzos as needed. 9. Substance abuse: Meth, marijuana 10. Possible history of recent rhabdomyolysis 11. Subclinical hyperthyroidism S: 06/01 no seizures. No fever dyspnea. Resting much improved. 06/02 much improved spoke with his mother. No fever tongue bite. Eating well Objective: Vital signs stable PE No pallor droop. poor oral hygiene Regular no mrg Clear Benign No edema. No muscle rigidity Result Diagram: 06/02/19 0457 06/02/19 0456 Results 24hrs Laboratory Tests Test 06/01/19 18:00 06/02/19 04:56 06/02/19 04:57 Urine Opiates Screen Negative Urine Barbiturates Negative Urine Amphetamines Screen POSITIVE Urine Benzodiazepines Screen Positive Urine Cocaine Screen Negative Urine Cannabinoids Positive Sodium Level 140 Potassium Level 3.4 L Chloride Level 105 Carbon Dioxide Level 30 Anion Gap 5 Blood Urea Nitrogen 15 # Creatinine 0.61 Est Glomerular Filtrat Rate mL/min > 60 Glucose Level 96 Calcium Level 9.1 Total Bilirubin 1.0 Direct Bilirubin 0.00 Indirect Bilirubin 1.0 Aspartate Amino Transf (AST/SGOT) 54 H Alanine Aminotransferase (ALT/SGPT) 40 Alkaline Phosphatase 66 Total Protein 6.3 Albumin 3.5 Globulin 2.80 Albumin/Globulin Ratio 1.25 Free Thyroxine 1.04 Total Triiodothyronine 0.92 L White Blood Count 7.2 # Red Blood Count 4.38 L Hemoglobin 13.0 L Hematocrit 41.0 L Mean Corpuscular Volume 93.6 Mean Corpuscular Hemoglobin 29.7 Mean Corpuscular Hemoglobin Concent 31.7 L Red Cell Distribution Width 12.9 Platelet Count 231 # Mean Platelet Volume 11.0 H Immature Granulocytes % 0.400 Neutrophils % 64.8 Lymphocytes % 23.7 Monocytes % 8.6 Eosinophils % 2.2 Basophils % 0.3 Nucleated Red Blood Cells % 0.0 Immature Granulocytes # 0.030 Neutrophils # 4.6 Lymphocytes # 1.7 Monocytes # 0.6 Eosinophils # 0.2 Basophils # 0.0 Nucleated Red Blood Cells # 0.0 Exam/Review of Systems Exam Vitals Vital Signs Date Temp Pulse Resp B/P (MAP) Pulse Ox O2 O2 Flow FiO2 Time Delivery Rate 06/02/19 97.7 76 18 101/66 95 08:32 (78) 06/02/19 2.0 06:01 06/02/19 Nasal 00:00 Cannula 06/01/19 28 22:31 Intake and Output 06/01/19 06/01/19 06/02/19 1515:00 23:00 07:00 IntakeIntake Total 1320 ml 720 ml 1000 ml OutputOutput Total 550 ml BalanceBalance 1320 ml 170 ml 1000 ml Results Results 24hrs Laboratory Tests Test 06/01/19 18:00 06/02/19 04:56 06/02/19 04:57 Urine Opiates Screen Negative Urine Barbiturates Negative Urine Amphetamines Screen POSITIVE Urine Benzodiazepines Screen Positive Urine Cocaine Screen Negative Urine Cannabinoids Positive Sodium Level 140 Potassium Level 3.4 L Chloride Level 105 Carbon Dioxide Level 30 Anion Gap 5 Blood Urea Nitrogen 15 # Creatinine 0.61 Est Glomerular Filtrat Rate mL/min > 60 Glucose Level 96 Calcium Level 9.1 Total Bilirubin 1.0 Direct Bilirubin 0.00 Indirect Bilirubin 1.0 Aspartate Amino Transf (AST/SGOT) 54 H Alanine Aminotransferase (ALT/SGPT) 40 Alkaline Phosphatase 66 Total Protein 6.3 Albumin 3.5 Globulin 2.80 Albumin/Globulin Ratio 1.25 Free Thyroxine 1.04 Total Triiodothyronine 0.92 L White Blood Count 7.2 # Red Blood Count 4.38 L Hemoglobin 13.0 L Hematocrit 41.0 L Mean Corpuscular Volume 93.6 Mean Corpuscular Hemoglobin 29.7 Mean Corpuscular Hemoglobin Concent 31.7 L Red Cell Distribution Width 12.9 Platelet Count 231 # Mean Platelet Volume 11.0 H Immature Granulocytes % 0.400 Neutrophils % 64.8 Lymphocytes % 23.7 Monocytes % 8.6 Eosinophils % 2.2 Basophils % 0.3 Nucleated Red Blood Cells % 0.0 Immature Granulocytes # 0.030 Neutrophils # 4.6 Lymphocytes # 1.7 Monocytes # 0.6 Eosinophils # 0.2 Basophils # 0.0 Nucleated Red Blood Cells # 0.0 Medications Medication Current Medications IV Flush (NS 3 ml) 3 ml PER PROTOCOL IV ; Start 05/31/19 at 19:30 Ondansetron HCl (Zofran Inj) 4 mg Q6H PRN IV NAUSEA/VOMITING; Start 05/31/19 at 19:30 Acetaminophen (Tylenol Tab) 650 mg Q6H PRN PO .PAIN 1-3 OR TEMP; Start 05/31/19 at 19:30 Acetaminophen (Tylenol Supp) 650 mg Q6H PRN [place] .PAIN 1-3 OR TEMP; Start 05/31/19 at 19:30 Acetaminophen/ Hydrocodone Bitart ([place] (5/325)) 1 tab Q6H PRN PO .MOD PAIN 4- 6; Start 05/31/19 at 19:30 Morphine Sulfate (morphine) 2 mg Q4H PRN IV .SEVERE PAIN 7-10; Start 05/31/19 at 19:30 Docusate Sodium (Colace) 100 mg Q12H PRN PO .CONSTIPATION; Start 05/31/19 at 19:30 Bisacodyl (Dulcolax Supp) 10 mg DAILY PRN [place] .CONSTIPATION; Start 05/31/19 at 19:30 Famotidine (Pepcid Iv) 20 mg Q24H IV Last administered on 06/01/19at 20:40; Admin Dose 20 MG; Start 05/31/19 at 21:00 Dextrose 1,000 ml @ 100 mls/hr Q10H IV Last administered on 06/02/19 06:40; Admin Dose 100 MLS/HR; Start 05/31/19 at 19:30 Gabapentin (Neurontin) 1,600 mg BID PO Last administered on 06/02/19 08:51; Admin Dose 1,600 MG; Start 05/31/19 at 21:00 Olanzapine (Zyprexa) 5 mg BID PO Last administered on 06/01/19at 20:40; Admin Dose 5 MG; Start 05/31/19 at 21:00 Lorazepam (Ativan) 2 mg Q6H PRN IV AGITATION/ANXIETY; Start 05/31/19 at 20:00 Enoxaparin Sodium (Lovenox) 40 mg DAILY SC Last administered on 06/02/19at 08:54; Admin Dose 40 MG; Start 06/02/19 at 09:00 Thiamine HCl (Vitamin B1) 100 mg DAILY PO Last administered on 06/02/19at 08:52; Admin Dose 100 MG; Start 06/02/19 at 09:00 JOSE PRO MD Jun 02, 2019 11:39
[2019-06-02 14:00] VITALS: BP 124/65; PULSE 84; RESP 18
--- NOTE | 2019-06-02 14:16 | PDOCDIS ---
Discharge Instructions CONDITION Delby1Me Patient Condition: [id number] Stable HOME CARE INSTRUCTIONS: [id number] Diet Instructions: [id number] Regular ACTIVITY: [id number] Activity Restrictions: [id number] Slowly Increase Activity Rest between Activity FOLLOW UP/APPOINTMENTS Follow-up Plan appt primary 1wk OTHER ORDERS: Other Orders: stop using drugs/ methamphetamines. SCHOOL/WORK RELEASE May return to School/Work on: Jun 02, 2019 JOSE PRO MD Jun 02, 2019 14:16
[2019-06-03] MEDS ORDERED: FAMOTIDINE 20 MG TAB PO SCH (09:00)
== END 2019-06-02 19:50 | disposition home or self-care (01) | DRG 923 ==
LOC: EDBD 17:10 → E/R 17:10 → 6WM 18:44 → MERGE 18:44 → EDBEDREQSVC 23:31 → MS3 06-01 23:50
PROVIDERS: ADMIT Internal Medicine; ATTEND Internal Medicine
DX: T67.0XXA Heatstroke and sunstroke, initial encounter (principal); E87.0 Hyperosmolality and hypernatremia; N17.9 Acute kidney failure, unspecified; M62.82 Rhabdomyolysis; R50.9 Fever, unspecified; F17.200 Nicotine dependence, unspecified, uncomplicated; G40.909 Epilepsy, unspecified, not intractable, without status epilepticus; X58.XXXA Exposure to other specified factors, initial encounter; Y93.89 Activity, other specified; Y92.9 Unspecified place or not applicable; Y99.8 Other external cause status; Z87.820 Personal history of traumatic brain injury; Z98.2 Presence of cerebrospinal fluid drainage device
CPT/HCPCS: 36415; 70450; 71045; 76775; 80048; 80053; 80307; 81001; 82550; 83036; 83605; 83735; 83930; 83935; 84100; 84155; 84300; 84439; 84443; 84480; 85025; 85610; 87086; 96374; 96375; J0696; J1630; J1650; J2060; J7030; J7070

== ENCOUNTER 2019-06-16 20:05 | Inpatient (IN) | payer MEDICAID ==
[~2019-06-16] VITALS: Ht 172.7 cm; Wt 64.0 kg
[~2019-06-16 20:05] MED LIST changes: +BEN50 PO; +ELIM TOP; +GABA400C PO; +GABA400C14 PO; +HC30CR25 TOP; -OLAN5TAB5 PO; +OXCA300T41 PO
[2019-06-16] MEDS ORDERED: LORAZEPAM 2 MG INJ IV STA (20:10)
[2019-06-16] MEDS ORDERED: SOD CHLORIDE 0.9% 1,000 ML IV STA ×3 (20:10→22:11)
[2019-06-16] MEDS ORDERED: LORAZEPAM 2 MG INJ IV ONE ×2 (22:00→22:30)
[2019-06-16] MEDS ORDERED: DIPHENHYDRAMINE 50 MG INJ IV ONE (23:00)
[2019-06-16] MEDS ORDERED: HALOPERIDOL 5 MG INJ IV ONE (23:00)
[2019-06-16] MEDS ORDERED: LACTATED RINGER'S 1,000 ML IV ONE (23:30)
[2019-06-17] MEDS ORDERED: CEFTRIAXONE 1 GM/50 ML (PMX) 50 ML IVPB ONE (00:30)
[2019-06-17] MEDS ORDERED: SOD CHLORIDE 0.9% 1,000 ML IV SCH (01:29)
[2019-06-17] MEDS ORDERED: NACL 0.9% 3 ML SYG IV SCH (01:30)
[2019-06-17] MEDS ORDERED: BISACODYL (EC) 5 MG TAB PO PRN (01:30)
[2019-06-17] MEDS ORDERED: ACETAMINOPHEN 325 MG TAB PO PRN (01:30)
[2019-06-17] MEDS ORDERED: ONDANSETRON 4 MG INJ IV PRN (01:30)
[2019-06-17] MEDS ORDERED: LORAZEPAM 2 MG INJ IV PRN ×2 (01:30)
[2019-06-17] MEDS ORDERED: DOCUSATE SODIUM 100 MG CAP PO PRN (01:30)
[2019-06-17 02:00] VITALS: BP 93/50; PULSE 84; RESP 16
[2019-06-17 02:57] VITALS: Ht 172.7 cm; Wt 64.0 kg
[2019-06-17 07:55] VITALS: BP 133/57; PULSE 97; RESP 17
[2019-06-17] MEDS: OXCARBAZEPINE 300 MG TAB PO SCH ×2 (09:00→21:00)
[2019-06-17] MEDS: GABAPENTIN 400 MG CAP PO SCH ×2 (09:55→21:00)
[2019-06-17 14:00] VITALS: BP 92/119; RESP 18
[2019-06-17 19:51] VITALS: BP 112/70; PULSE 84; RESP 17
[2019-06-17] MEDS ORDERED: POTASSIUM CHLORIDE (SR) 20 MEQ TAB PO ONE (21:00)
[2019-06-18 01:25] VITALS: BP 116/74; PULSE 80; RESP 17
[2019-06-18 07:47] VITALS: BP 103/67; PULSE 68; RESP 18
[2019-06-18] MEDS: OXCARBAZEPINE 300 MG TAB PO SCH ×2 (08:07→20:54)
[2019-06-18] MEDS: GABAPENTIN 400 MG CAP PO SCH ×2 (08:09→20:57)
[2019-06-18 14:05] VITALS: BP 127/75; PULSE 95; RESP 18
[2019-06-18 19:45] VITALS: BP 105/63; PULSE 80; RESP 17
[2019-06-19 02:03] VITALS: BP 110/67; PULSE 84; RESP 18
[2019-06-19 07:46] VITALS: BP 112/69; PULSE 82; RESP 18
[2019-06-19] MEDS: OXCARBAZEPINE 300 MG TAB PO SCH (08:17)
[2019-06-19] MEDS: GABAPENTIN 400 MG CAP PO SCH (08:17)
[2019-06-19 14:00] VITALS: BP 159/59; PULSE 78; RESP 16
== END 2019-06-19 16:50 | disposition home or self-care (01) | DRG 100 ==
LOC: E/R 20:05 → MS3 06-17 00:53 → CANRESERV 06-17 01:22 → MS3 06-17 01:53
PROVIDERS: ADMIT Family Medicine; ATTEND Family Medicine
DX: G40.909 Epilepsy, unspecified, not intractable, without status epilepticus (principal); G92 Toxic encephalopathy; N39.0 Urinary tract infection, site not specified; Z59.0 Homelessness; E86.0 Dehydration; R45.1 Restlessness and agitation; Z87.820 Personal history of traumatic brain injury; F15.90 Other stimulant use, unspecified, uncomplicated; Z72.0 Tobacco use; F12.90 Cannabis use, unspecified, uncomplicated
CPT/HCPCS: 36415; 70450; 71045; 80048; 80053; 80061; 80076; 80307; 81001; 83036; 83735; 84100; 84443; 85025; 87081; 87086; 95819; 96361; 96374; 96375; 96376; 97116; 97162; A4310; J0696; J1200; J1630; J2060; J7030; J7120

== ENCOUNTER 2019-06-21 08:44 | Emergency (ER) | payer MEDICAID ==
[~2019-06-21] VITALS: Ht 170.2 cm; Wt 58.9 kg
[~2019-06-21 08:44] MED LIST changes: -GABA-528 PO
[2019-06-21 08:50] VITALS: BP 123/78; PULSE 95; RESP 18; Ht 170.2 cm; Wt 58.9 kg
== END 2019-06-21 10:07 | disposition home or self-care (01) ==
LOC: FTE 08:44
DX: R21 Rash and other nonspecific skin eruption (principal)
CPT/HCPCS: 99283

== ENCOUNTER 2019-06-26 22:25 | Emergency (ER) | payer SELFPAY ==
[~2019-06-26] VITALS: Ht 170.2 cm; Wt 60.0 kg
[2019-06-26 22:43] VITALS: BP 171/62; PULSE 95; RESP 20; Ht 170.2 cm; Wt 60.0 kg
== END 2019-06-27 04:41 | disposition left against medical advice (07) ==
LOC: FTE 22:25
DX: Z53.21 Procedure and treatment not carried out due to patient leaving prior to being seen by health care provider (principal)

== ENCOUNTER 2019-06-27 06:59 | Emergency (ER) | payer MEDICAID, OTHER ==
[~2019-06-27] VITALS: Wt 60.7 kg
[2019-06-27 07:03] VITALS: BP 139/78; PULSE 79; RESP 18
== END 2019-06-27 07:43 | disposition home or self-care (01) ==
LOC: FTE 06:59
DX: L29.9 Pruritus, unspecified (principal); Z59.0 Homelessness
CPT/HCPCS: 99282

== ENCOUNTER 2019-06-27 15:03 | Emergency (ER) | payer MEDICAID ==
[~2019-06-27] VITALS: Ht 170.2 cm; Wt 59.1 kg
[2019-06-27 15:26] VITALS: Ht 170.2 cm; Wt 59.1 kg
[2019-06-27] MEDS ORDERED: OLANZAPINE (ODT) 5 MG TAB ODT STA (15:45)
[2019-06-27] MEDS: BENZTROPINE 1 MG TAB PO SCH ×2 (20:21→20:26)
[2019-06-27] MEDS: OLANZAPINE 5 MG TAB PO SCH ×2 (20:23→20:26)
[2019-06-28 04:00] VITALS: BP 97/68; PULSE 68; RESP 16
== END 2019-06-28 04:05 ==
LOC: E/R 15:03
DX: F20.0 Paranoid schizophrenia (principal); Z76.5 Malingerer [conscious simulation]; Z86.59 Personal history of other mental and behavioral disorders
CPT/HCPCS: 80053; 80307; 85025; Z7502; Z7610; 99285